=== PATIENT | male | born 1965 | race Caucasian/White ===

== ENCOUNTER 2023-09-04 15:19 | Emergency (ER) | payer OTHER, SELFPAY ==
[2023-09-04 15:20] VITALS: BP 167/91
[2023-09-04 15:32] LABS: % Basophils 0.6 % (0-2); % Eosinophils 1.5 % (0-6); % Immature Granulocytes 0.3 % (0-0.5); % Monocytes 9.3 % (1.7-9.3); % Neutrophils 67.3 % (42.2-75.2); Absolute Basophils 0.1 10^3/uL (0-0.2); Absolute Eosinophils 0.2 10^3/uL (0-0.7); Absolute Lymphocytes 2.1 10^3/uL (1.2-3.4); Absolute Monocytes 0.9 10^3/uL (0.1-0.6); Absolute Neutrophils 6.6 10^3/uL (1.4-6.5); Hematocrit 40.4 % (39.0-52.0); Hemoglobin 13.7 g/dL (13.0-18.0); Mean Corp Hgb Conc. 33.9 g/dL (33.0-37.0); Mean Corpuscular Hgb 28.1 pg (27.0-31.0); Mean Corpuscular Volume 82.8 fL (80.0-94.0); Mean Platelet Volume 9.1 fL (7.4-10.4); Nucleated Red Blood Cells % 0 % (-); Platelet Count 261 10^3/uL (130-400); Red Blood Cell Count 4.88 10^6/uL (4.70-6.10); Red Cell Dist. Width 12.4 % (11.5-14.5); White Blood Cell Count 9.8 10^3/uL (4.8-10.8)
[2023-09-04 15:51] LABS: ALT (SGPT) 27 U/L (0-50); AST (SGOT) 30 U/L (17-59); Albumin 4.1 g/dl (3.5-5.0); Alkaline Phosphatase 59 U/L (38-126); Blood Urea Nitrogen 14 mg/dl (9-20); Calcium 9.7 mg/dl (8.4-10.2); Carbon Dioxide 28 mmol/L (22-30); Chloride 99 mmol/L (98-107); Glucose 105 mg/dl (70-99); Potassium 3.6 mmol/L (3.5-5.1); Sodium 138 mmol/L (135-145); Total Bilirubin 0.8 mg/dl (0.2-1.3); Total Protein 6.6 g/dl (6.3-8.2); eGFR > 60.00
[2023-09-04 15:58] LABS: Urine Albumin Negative (Neg - Trace); Urine Bilirubin Negative (Negative); Urine Character Clear (Clear); Urine Color Yellow; Urine Glucose Negative (Negative); Urine Ketone Negative (Negative); Urine Leukocyte Negative (Negative); Urine Nitrite Negative (Negative); Urine Occult Blood Trace (Negative); Urine Specific Gravity 1.015 (<1.030); Urine Urobilinogen Negative (Neg - 1+)
[2023-09-04 16:05] LABS: Urine Red Blood Cell 0-2 /HPF (0-2); Urine Squamous Cell 0-2 /LPF (Few); Urine White Cell None Seen /HPF (0-5)
--- NOTE | 2023-09-04 16:15 | ED.GENMED ---
History of Present Illness
General
Chief Complaint: Flank Pain
Source: patient
Exam Limitations: none
Time Seen by Provider: 09/04/23 15:51
Travel History
Have you had any contact with someone who has COVID-19?: No
Do you have any symptoms of coronavirus? Fever > 100 degrees, chills, cough, shortness of breath, sore throat, loss of taste or smell, muscle aches, or headache?: No
History of Present Illness
History of Present Illness:
58-year-old male presents complaining of intermittent left flank pain over the past week but worse last night. No radiation to the front or down the leg. No associated urinary symptoms. No nausea or vomiting or fever. No rash. Of note, patient
had right shoulder rotator cuff repair 3 days ago. the flank pain preceded the surgery and the pain is not pleuritic.
Phy Exam
Physical Exam
Physical Exam:
General: Well-appearing male no acute respiratory distress HEENT: Normocephalic atraumatic neck is supple
Heart: Regular rate and rhythm no murmurs
Lungs: Clear to auscultation bilaterally no wheezing
Abdomen: Soft mildly tender to the left costovertebral angle. Normal bowel sounds nondistended
Extremities: No cyanosis
Course
Orders/Labs/Results
Orders:
Orders
09/04/23 15:26
Complete Blood Count/With Diff Urgent
Comprehensive Metabolic Panel Urgent
09/04/23 15:50
Urinalysis Reflex To Culture Urgent
Date Specimen was Collected: 09/04/23
Time Specimen was Collected: 15:48
Urine Microscopic Reflex Cult Urgent
09/04/23 15:58
CT Abd/pel Without Iv Or Oral Urgent
Comment:
Reason For Exam: left flank pain
Abnormal Lab Results
09/04/23 09/04/23
15:26 15:50
Absolute Neuts (auto) 6.6 H 10^3/uL
(1.4-6.5)
Absolute Monos (auto) 0.9 H 10^3/uL
(0.1-0.6)
Glucose 105 H mg/dl
(70-99)
Ur Occult Blood Reflex Trace A
(Negative)
09/04/23 15:26
09/04/23 15:26
Vital Signs
Initial and Last Documented VS:
Initial Vital Signs
Temp Pulse Resp BP Pulse Ox
98.2 F 76 18 167/91 100
09/04/23 15:20 09/04/23 15:20 09/04/23 15:20 09/04/23 15:20 09/04/23 15:20
Last Documented Vital Signs
Temp Pulse Resp BP Pulse Ox
98.2 F 76 18 167/91 100
09/04/23 15:20 09/04/23 15:20 09/04/23 15:20 09/04/23 15:20 09/04/23 15:20
MDM/Problems Addressed
Differential Diagnosis Includes:
Left flank pain. Differential could include muscular versus radicular versus renal colic or pyelonephritis. Check labs and urine CT without contrast pending
*Critical Care Note
Total Time (30-74mins, 75-104mins- exclusive of procedures): Not Applicable
Update Note
Update Note:
CT of abdomen negative for acute finding. Patient reassured. Suspect underlying musculoskeletal flank pain. Recommended warm compresses and anti-inflammatories.
ED Attending Note
-
Portions of this chart may have been created with voice recognition software.� Occasional wrong word or��sound alike� substitutions may have occurred due to the inherent limitations of voice recognition software.
Discharge Plan
Departure
Patient Disposition: Home (Routine Discharge)
Date of Disposition: 09/04/23
Time of Disposition: 17:10
Patient with high blood pressure during this ER visit?: No
Discharge Problem:
Flank pain
Instructions: Flank Pain (DC)
Referrals:
Gio Mcgraw, DO [Family Provider] -
Activity Restrictions/Additional Instructions:
Continue with warm compresses Tylenol or ibuprofen. Return if worse otherwise follow-up with family doctor
Interventions
Interventions:
*Risk Screen - Suicide Last Done: 09/04/23 15:20
*General Assessment Last Done: 09/04/23 15:20
*Neglect/Abuse Screening Last Done: 09/04/23 15:20
*ED COVID-19 Vaccine History Last Done: 09/04/23 15:20
TG-Eggscv-Pznoehrdtr Assessment Last Done: 09/04/23 15:53
ED-Male Genitourinary Assessment Last Done: 09/04/23 15:53
== END 2023-09-04 17:22 | disposition home or self-care (01) ==
LOC: EMR 15:19
PROVIDERS: Emergency Medicine; EMERGENCY PHYSICIAN Emergency Medicine; FAMILY PHYSICIAN Family Medicine
DX: R10.9 Unspecified abdominal pain (principal)
CPT/HCPCS: 99284; 74176; 80053; 81003; 81015; 85025